=== PATIENT | male | born 1985 | race Caucasian/White ===

== ENCOUNTER 2023-10-22 23:51 | Emergency (ER) | payer MEDICAID ==
[~2023-10-22] VITALS: Ht 175.3 cm; Wt 70.0 kg
[2023-10-22 23:55] VITALS: O2SAT 96
[2023-10-23] MEDS ORDERED: SODIUM CHLORIDE 0.9% 1,000 ML IV ONE (01:00)
[2023-10-23 01:14] LABS: BASOPHILS % 0.5 % (0.0-2.0); EOSINOPHILS % 1.8 % (0.0-5.0); HEMATOCRIT. 40.3 % (42.0-52.0); LYMPHOCYTES % 25.6 % (20.0-50.0); MEAN CORPUSCULAR HEMOGLOBIN 31.3 pg (28.0-32.0); MEAN CORPUSCULAR HGB CONC 32.3 g/dL (31.0-37.0); MEAN CORPUSCULAR VOLUME 96.9 fL (80.0-94.0); MEAN PLATELET VOLUME 8.5 fl (7.4-10.4); MONOCYTES % 8.4 % (2.0-8.0); NEUTROPHILS % 63.7 % (40.0-76.0); PLATELET 398 x1000/uL (130-400); RED BLOOD CELL COUNT 4.16 mill/uL (4.7-6.1); RED CELL DISTRIBUTION WIDTH 13.5 % (11.6-14.6); WHITE BLOOD COUNT 9.1 x1000/uL (4.5-11.0)
[2023-10-23 01:25] LABS: BG BASE EXCESS -4.8 mmol/L (-2.0-2.0); BG CARBOXYHEMOGLOBIN 3.5 % (0.5-1.5); BG FRACTION INSPIRED OXYGEN 21; BG HCO3 ACT 20.6 mmol/L (22.0-26.0); BG METHEMOGLOBIN 0.3 % (0.0-1.5); BG OXYGEN SATURATION 90.6 % (92.0-98.5); BG OXYHEMOGLOBIN 87.2 % (94.0-97.0); BG PCO2 39.1 mmHg (35.0-45.0); BG PH 7.339 (7.350-7.450); BG PO2 64.8 mmHg (75.0-100.0); BG SAMPLE SITE RIGHT RADIAL; BG TOTAL HEMOGLOBIN 13.7 g/dL (12.0-18.0); BG VENT MODE ROOM AIR
[2023-10-23 01:46] LABS: LACTIC ACID 11.1 mmol/L (0.4-2.0)
[2023-10-23] MEDS ORDERED: PIPERACILLIN/TAZO 3.375G/50ML 50 ML IV NR (02:00)
[2023-10-23] MEDS: SODIUM CHLORIDE 0.9% 1,000 ML IV NR ×2 (02:00→03:54)
[2023-10-23 02:53] LABS: POTASSIUM 4.2 mEq/L (3.5-5.1); SODIUM 138 mEq/L (136-145)
[2023-10-23 02:57] LABS: CHLORIDE 103 mEq/L (98-107)
[2023-10-23 02:58] LABS: CARBON DIOXIDE 18 mEq/L (21-32); CREATININE 1.5 mg/dL (0.6-1.3); GLUCOSE 174 mg/dL (70-105); UREA NITROGEN BLOOD 14 mg/dL (9-23)
[2023-10-23 02:59] LABS: ALANINE AMINOTRANSFERASE 34 IU/L (10-49); ALBUMIN 4.4 g/dL (3.2-4.8); ASPARTATE AMINOTRANSFERASE 26 IU/L (<34); BILIRUBIN TOTAL 0.6 mg/dL (0.1-1.0); CALCIUM 9.9 mg/dL (8.7-10.4); ETHANOL BLOOD < 10 mg/dL (<10); PROTEIN TOTAL 7.4 g/dL (6.0-8.3)
[2023-10-23 04:03] LABS: CREATINE KINASE 364 IU/L (46-171)
[2023-10-23 04:42] LABS: CREATINE KINASE 295 IU/L (46-171)
[2023-10-23] MEDS ORDERED: IPRATROPIUM/ALBUTEROL 0.5-3(2.5)MG/3ML NEB HHN PRN (10:30)
[2023-10-23] MEDS ORDERED: SODIUM CHLORIDE 0.9% 1,000 ML IV SCH (10:30)
[2023-10-23] MEDS ORDERED: CLONIDINE 0.1MG TABLET PO PRN (10:30)
[2023-10-23] MEDS ORDERED: DIPHENHYDRAMINE 50MG/ML VIAL IV PRN (10:30)
[2023-10-23] MEDS ORDERED: ACETAMINOPHEN 325MG TABLET PO PRN (10:30)
[2023-10-23] MEDS ORDERED: ONDANSETRON HCL 4MG/2ML INJ IV PRN (10:30)
[2023-10-23 10:32] VITALS: BP 140/87; PULSE 91; RESP 16; TEMP 98.2
[2023-10-23 10:48] LABS: CLARITY URINE CLEAR (CLEAR); COLOR URINE YELLOW (YELLOW); GLUCOSE URINE NEGATIVE (NEGATIVE); KETONES URINE NEGATIVE (NEGATIVE); LEUKOCYTE ESTERASE URINE NEGATIVE (NEGATIVE); NITRITE URINE NEGATIVE (NEGATIVE); OCCULT BLOOD URINE NEGATIVE (NEGATIVE); PROTEIN URINE 2+ (NEGATIVE); SPECIFIC GRAVITY URINE 1.008 (1.005-1.030); UROBILINOGEN URINE 0.2 E.U./dL (0.2-1.0)
[2023-10-23 11:41] LABS: RBC URINE 0-2 /hpf (0-2); SQUAMOUS EPITHELIAL CELL URINE RARE /lpf (RARE/1+)
[2023-10-23 11:42] LABS: BACTERIA URINE TRACE; WBC URINE 0-2 /hpf (0-2)
[2023-10-23 11:46] LABS: *AMPHETAMINES SCREEN URINE PRESUMPTIVE POSITIVE (NEGATIVE); *BARBITURATES SCREEN URINE NEGATIVE (NEGATIVE); *BENZODIAZEPINES SCREEN URINE NEGATIVE (NEGATIVE); *COCAINE SCREEN URINE NEGATIVE (NEGATIVE); CANNABINOID URINE SCREEN NEGATIVE (NEGATIVE); ECSTASY MDMA SCREEN URINE CONF.TEST INDICATED (NEGATIVE); METHADONE URINE SCREEN Neg (NEGATIVE); OPIATES URINE SCREEN NEGATIVE (NEGATIVE); PHENCYCLIDINE URINE SCREEN NEGATIVE (NEGATIVE)
== END 2023-10-23 10:33 | disposition left against medical advice (07) ==
LOC: ER 23:51 → EDBD 23:51 → EDBEDREQTM 10-23 03:41 → EDBEDREQ 10-23 03:41 → CANBEDREQ 10-23 10:31 → ER 10-23 10:33
DX: R41.82 Altered mental status, unspecified (principal); I95.9 Hypotension, unspecified; E87.20 Acidosis, unspecified; Z20.822 Contact with and (suspected) exposure to COVID-19
CPT/HCPCS: 99285; 80053; 80305; 81003; 80320; 82550; 83605; 83690; 85025; 87040; 87804 ×2; 36415; 71045; 70450; 74176; 82805; 82375; 96361; 96365; 87426; 36600; J2543; J7030; Z7610; G0480

== ENCOUNTER 2024-10-31 01:54 | Emergency (ER) | payer SELFPAY ==
[~2024-10-31] VITALS: Ht 170.2 cm; Wt 82.0 kg
[2024-10-31 01:56] VITALS: BP 105/38; PULSE 113; RESP 18; TEMP 97.7; O2SAT 96
[2024-10-31] MEDS: SODIUM CHLORIDE 0.9% 1,000 ML IV ONE (02:23)
[2024-10-31 02:50] LABS: BASOPHILS % 0.4 % (0.0-2.0); EOSINOPHILS % 3.3 % (0.0-5.0); HEMATOCRIT. 39.5 % (42.0-52.0); LYMPHOCYTES % 27.8 % (20.0-50.0); MEAN CORPUSCULAR HEMOGLOBIN 31.6 pg (28.0-32.0); MEAN CORPUSCULAR HGB CONC 32.9 g/dL (31.0-37.0); MEAN PLATELET VOLUME 8.1 fl (7.4-10.4); NEUTROPHILS % 59.5 % (40.0-76.0); PLATELET 338 x1000/uL (130-400); RED BLOOD CELL COUNT 4.12 mill/uL (4.7-6.1); RED CELL DISTRIBUTION WIDTH 14.7 % (11.6-14.6); WHITE BLOOD COUNT 7.4 x1000/uL (4.5-11.0)
[2024-10-31 02:55] LABS: CARBON DIOXIDE 22 mEq/L (21-32); CHLORIDE 105 mEq/L (98-107); POTASSIUM 3.8 mEq/L (3.5-5.1); SODIUM 141 mEq/L (136-145)
[2024-10-31 02:56] LABS: CALCIUM 9.9 mg/dL (8.7-10.4)
[2024-10-31 03:01] LABS: CREATININE 1.4 mg/dL (0.6-1.3); GLUCOSE 133 mg/dL (70-105); UREA NITROGEN BLOOD 14 mg/dL (9-23)
[2024-10-31 03:03] LABS: ACETAMINOPHEN < 2 ug/mL (10-30)
[2024-10-31 03:36] LABS: ETHANOL BLOOD < 10 mg/dL (<10)
[2024-10-31] MEDS ORDERED: NALO4SPR BOTHNSTRLS (05:28)
== END 2024-10-31 05:37 | disposition home or self-care (01) ==
LOC: ER 01:54
DX: T50.901A Poisoning by unspecified drugs, medicaments and biological substances, accidental (unintentional), initial encounter (principal); X58.XXXA Exposure to other specified factors, initial encounter
CPT/HCPCS: 80048; 80307; 80329; 80320; 85025; 36415; 70450; 96360; 99284; J7030; G0480

== ENCOUNTER 2024-11-20 23:52 | Emergency (ER) | payer SELFPAY ==
[~2024-11-20] VITALS: Ht 167.6 cm; Wt 83.0 kg
[~2024-11-20 23:52] MED LIST: NALO4SPR BOTHNSTRLS
[2024-11-21 00:05] VITALS: O2SAT 99
[2024-11-21 00:29] VITALS: BP 143/88; PULSE 83; RESP 18; TEMP 37.1; O2SAT 99
[2024-11-21] MEDS: ACETAMINOPHEN 325MG TABLET PO ONE (04:11)
[2024-11-21] MEDS: KETOROLAC 30MG/ML VIAL IM ONE (04:11)
[2024-11-21 05:24] LABS: BASOPHILS % 0.3 % (0.0-2.0); EOSINOPHILS % 3.8 % (0.0-5.0); HEMATOCRIT. 35.1 % (42.0-52.0); HEMOGLOBIN. 11.9 g/dL (14.0-18.0); LYMPHOCYTES % 23.2 % (20.0-50.0); MEAN CORPUSCULAR HEMOGLOBIN 31.6 pg (28.0-32.0); MEAN CORPUSCULAR VOLUME 93.1 fL (80.0-94.0); MEAN PLATELET VOLUME 7.3 fl (7.4-10.4); NEUTROPHILS % 60.7 % (40.0-76.0); PLATELET 373 x1000/uL (130-400); RED BLOOD CELL COUNT 3.77 mill/uL (4.7-6.1); RED CELL DISTRIBUTION WIDTH 13.8 % (11.6-14.6)
[2024-11-21 05:42] LABS: CARBON DIOXIDE 28 mEq/L (21-32); CHLORIDE 109 mEq/L (98-107); SODIUM 142 mEq/L (136-145)
[2024-11-21 05:43] LABS: CALCIUM 9.1 mg/dL (8.7-10.4)
[2024-11-21 05:48] LABS: GLUCOSE 88 mg/dL (70-105); UREA NITROGEN BLOOD 16 mg/dL (9-23)
[2024-11-21] MEDS ORDERED: LIDO700A15 TP (05:58)
[2024-11-21] MEDS ORDERED: NAPR-679 MT (05:58)
[2024-11-21] MEDS ORDERED: TOPUD MT (05:58)
== END 2024-11-21 06:28 | disposition home or self-care (01) ==
LOC: ER 23:52
DX: M25.552 Pain in left hip (principal); M25.511 Pain in right shoulder; R10.2 Pelvic and perineal pain; Z79.899 Other long term (current) drug therapy; Z79.1 Long term (current) use of non-steroidal anti-inflammatories (NSAID); V03.10XA Pedestrian on foot injured in collision with car, pick-up truck or van in traffic accident, initial encounter; Y93.89 Activity, other specified; Y92.89 Other specified places as the place of occurrence of the external cause; Y99.8 Other external cause status
CPT/HCPCS: 99284; 73523; 80048; 85025; 36415; 96372; J1885; A4606

== ENCOUNTER 2025-02-25 13:41 | Emergency (ER) | payer SELFPAY ==
[~2025-02-25] VITALS: Ht 167.6 cm; Wt 82.0 kg
[~2025-02-25 13:41] MED LIST changes: +LIDO-53 TP; +NAPR-679 MT; +TOPUD MT
[2025-02-25 13:48] VITALS: O2SAT 98
[2025-02-25 14:07] VITALS: BP 130/80; PULSE 99; RESP 18; TEMP 36.9; O2SAT 100
[2025-02-25 15:10] LABS: BASOPHILS % 0.2 % (0.0-2.0); EOSINOPHILS % 1.7 % (0.0-5.0); HEMATOCRIT. 37.7 % (42.0-52.0); HEMOGLOBIN. 12.6 g/dL (14.0-18.0); MEAN CORPUSCULAR HEMOGLOBIN 29.7 pg (28.0-32.0); MEAN CORPUSCULAR HGB CONC 33.5 g/dL (31.0-37.0); MEAN CORPUSCULAR VOLUME 88.7 fL (80.0-94.0); MEAN PLATELET VOLUME 7.7 fl (7.4-10.4); MONOCYTES % 9.6 % (2.0-8.0); NEUTROPHILS % 75.5 % (40.0-76.0); PLATELET 367 x1000/uL (130-400); RED BLOOD CELL COUNT 4.25 mill/uL (4.7-6.1); RED CELL DISTRIBUTION WIDTH 14.6 % (11.6-14.6); WHITE BLOOD COUNT 11.4 x1000/uL (4.5-11.0)
[2025-02-25 15:19] LABS: CHLORIDE 101 mEq/L (98-107); POTASSIUM 4.2 mEq/L (3.5-5.1); SODIUM 141 mEq/L (136-145)
[2025-02-25 15:20] LABS: CALCIUM 9.8 mg/dL (8.7-10.4); CARBON DIOXIDE 29 mEq/L (21-32)
[2025-02-25 15:25] LABS: CREATININE 1.1 mg/dL (0.6-1.3); GLUCOSE 97 mg/dL (70-105)
[2025-02-25 15:26] LABS: UREA NITROGEN BLOOD 13 mg/dL (9-23)
[2025-02-25 15:27] LABS: ALANINE AMINOTRANSFERASE 55 IU/L (10-49); ALBUMIN 4.6 g/dL (3.2-4.8); ASPARTATE AMINOTRANSFERASE 35 IU/L (<34); BILIRUBIN DIRECT 0.2 mg/dL (<=3.0)
[2025-02-25 15:28] LABS: BILIRUBIN TOTAL 0.6 mg/dL (0.1-1.0)
[2025-02-25 15:33] LABS: TROPONIN I HIGH SENSITIVITY < 4 ng/L (3.0-53)
[2025-02-25 15:34] LABS: CLARITY URINE CLOUDY (CLEAR); COLOR URINE YELLOW (YELLOW); GLUCOSE URINE NEGATIVE (NEGATIVE); KETONES URINE TRACE (NEGATIVE); LEUKOCYTE ESTERASE URINE 2+ (NEGATIVE); NITRITE URINE POSITIVE (NEGATIVE); OCCULT BLOOD URINE 1+ (NEGATIVE); PROTEIN URINE 1+ (NEGATIVE); SPECIFIC GRAVITY URINE 1.023 (1.005-1.030)
[2025-02-25 15:55] LABS: BACTERIA URINE 4+; RBC URINE 25-50 /hpf (0-2); SQUAMOUS EPITHELIAL CELL URINE RARE /lpf (RARE/1+)
[2025-02-25] MEDS ORDERED: CEPH500C2 MT (16:27)
[2025-02-25] MEDS ORDERED: SULF1TAB47 MT (16:27)
== END 2025-02-25 16:40 | disposition home or self-care (01) ==
LOC: ER 13:41
DX: L02.211 Cutaneous abscess of abdominal wall (principal); Z79.1 Long term (current) use of non-steroidal anti-inflammatories (NSAID); Z79.899 Other long term (current) drug therapy
CPT/HCPCS: 36415; 80048; 80076; 81003; 84484; 85025; 93005; 99284

== ENCOUNTER 2025-07-25 07:58 | Emergency (ER) | payer SELFPAY ==
[~2025-07-25] VITALS: Ht 172.7 cm; Wt 95.0 kg
[~2025-07-25 07:58] MED LIST changes: +CEPH500C2 MT; +SULF1TAB47 MT
[2025-07-25 08:00] VITALS: O2SAT 96
[2025-07-25 08:23] LABS: BASOPHILS % 0.4 % (0.0-2.0); EOSINOPHILS % 3.5 % (0.0-5.0); HEMATOCRIT. 38.5 % (42.0-52.0); HEMOGLOBIN. 12.9 g/dL (14.0-18.0); LYMPHOCYTES % 30.1 % (20.0-50.0); MEAN PLATELET VOLUME 8.2 fl (7.4-10.4); MONOCYTES % 10.6 % (2.0-8.0); NEUTROPHILS % 55.4 % (40.0-76.0); PLATELET 350 x1000/uL (130-400); RED BLOOD CELL COUNT 4.24 mill/uL (4.7-6.1); RED CELL DISTRIBUTION WIDTH 13.2 % (11.6-14.6)
[2025-07-25] MEDS: LEVETIRACETAM 1000MG PREMIX 100 ML IV ONE (08:29)
[2025-07-25 08:41] LABS: CREATININE 1.0 mg/dL (0.6-1.3); UREA NITROGEN BLOOD 15 mg/dL (9-23)
[2025-07-25 14:43] VITALS: BP 126/77; PULSE 63; RESP 16; TEMP 36.9; O2SAT 96
== END 2025-07-25 14:45 ==
LOC: ER 07:58
DX: G40.909 Epilepsy, unspecified, not intractable, without status epilepticus (principal); Z79.899 Other long term (current) drug therapy
CPT/HCPCS: 80048; 80320; 85025; 36415; 96365; 99285; J1953; G0480